=== PATIENT | female | born 1965 | race Caucasian/White ===

== ENCOUNTER 2018-01-28 13:05 | Emergency (ER) | payer OTHER ==
[~2018-01-28] VITALS: Ht 162.6 cm; Wt 62.6 kg
[2018-01-28] MEDS ORDERED: SINGULAIR5 MG PO (14:01)
[2018-01-28] MEDS ORDERED: PREDNISONE10 MG PO (14:01)
== END 2018-01-28 20:08 | disposition home or self-care (01) ==
LOC: ER 13:05
DX: J06.9 Acute upper respiratory infection, unspecified (principal)

== ENCOUNTER 2018-05-18 11:03 | Emergency (ER) | payer OTHER ==
[~2018-05-18] VITALS: Ht 162.6 cm; Wt 60.8 kg
[~2018-05-18 11:03] MED LIST: PREDNISONE10 MG PO; SINGULAIR5 MG PO
[2018-05-18] MEDS ORDERED: CYCLOBENZAPRINE10 MG PO (14:15)
[2018-05-18] MEDS ORDERED: DICLOFENAC SODI50 MG PO (14:15)
[2018-05-18] MEDS ORDERED: MEDROLPACK PO (14:15)
== END 2018-05-18 15:02 | disposition home or self-care (01) ==
LOC: ER 11:03
DX: M54.2 Cervicalgia (principal)

== ENCOUNTER 2019-04-17 10:22 | Outpatient (CLI) | payer OTHER ==
[~2019-04-17 10:22] MED LIST changes: +CYCLOBENZAPRINE10 MG PO; +DICLOFENAC SODI50 MG PO; +MEDROLPACK PO
== END 2019-04-17 11:55 | disposition home or self-care (01) ==
LOC: SONOGRAMA 10:22
DX: R59.1 Generalized enlarged lymph nodes (principal)

== ENCOUNTER 2021-03-18 08:47 | Day surgery (SDC) | payer OTHER ==
[~2021-03-18 08:47] MED LIST changes: +SYMBICORT 16010.2 GM IH
== END 2021-03-18 17:55 | disposition home or self-care (01) ==
LOC: CIR.AMB 08:47
PROVIDERS: ATTEND Colon & Rectal Surgery
DX: K80.10 Calculus of gallbladder with chronic cholecystitis without obstruction (principal); Z20.822 Contact with and (suspected) exposure to COVID-19

== ENCOUNTER 2022-05-30 18:13 | Emergency (ER) | payer OTHER ==
[~2022-05-30] VITALS: Ht 165.1 cm; Wt 66.2 kg
[2022-05-30] MEDS ORDERED: ATORVASTATIN CA10 MG PO (18:43)
== END 2022-05-30 22:11 | disposition home or self-care (01) ==
LOC: ER 18:13
DX: S90.121A Contusion of right lesser toe(s) without damage to nail, initial encounter (principal); W22.8XXA Striking against or struck by other objects, initial encounter; Y93.9 Activity, unspecified; Y92.012 Bathroom of single-family (private) house as the place of occurrence of the external cause; E78.00 Pure hypercholesterolemia, unspecified; J84.10 Pulmonary fibrosis, unspecified

== ENCOUNTER 2023-09-17 12:07 | Emergency (ER) | payer OTHER ==
[~2023-09-17] VITALS: Ht 165.1 cm; Wt 65.8 kg
[~2023-09-17 12:07] MED LIST changes: +ATORVASTATIN CA10 MG PO
[2023-09-17] MEDS ORDERED: PROAIR RESPICL90 MCG (12:42)
[2023-09-17] MEDS ORDERED: AZITHROMYCIN250 MG PO (12:42)
[2023-09-17 15:42] LABS: HEMATOCRIT 43.3 % (36.0-45.00); HEMOGLOBIN 14.7 g/dL (12.0-15.00); MEAN CORPUSCULAR HEMOGLOBIN 32.5 pg (27.00-32.0); MEAN CORPUSCULAR HGB CONC 33.9 g/dl (32.0-36.0); PLATELET COUNT 174 K/uL (150-450); RED BLOOD COUNT 4.51 M/uL (4.00-6.00); RED CELL DISTRIBUTION WIDTH 13.9 % (11.5-14.5)
[2023-09-17 16:09] LABS: ABG PH 7.554 (7.35-7.45); ABG PO2 126.5 mmHg (80-100); ABG pCO2 22.4 mmHg (35-45); SaO2 99.3 %
[2023-09-17 16:10] LABS: BASE EXCESS -0.7 mmol/l; BICARBONATE 19.4 mmol/l (23-25); Tco2 20.1 mmol/l; allen test SATISFACTORY; o2 21 %; puncture site RADIAL RIGHT
[2023-09-17 16:16] LABS: CALCIUM 9.6 mg/dL (8.5-10.1); CREATININE SERUM 0.82 mg/dL (0.55-1.02); GFR 71.11; POTASSIUM 4.23 mEq/L (3.5-5.1)
[2023-09-17 16:25] LABS: C-REACTIVE PROTEIN 0.72 MG/DL (0.00-0.29)
[2023-09-17] MEDS ORDERED: BUDESONIDE0.5 MG/2 M IH (17:05)
[2023-09-17] MEDS ORDERED: QC TUSSIN DM L118 ML PO (17:05)
[2023-09-17] MEDS ORDERED: IPRATROPIU0.2 MG/1 M IH (17:05)
[2023-09-17] MEDS ORDERED: ALBUTEROL0.63 MG/3 IH (17:05)
== END 2023-09-17 17:37 ==
LOC: ER 12:08
PROVIDERS: Nurse Practitioner Family
DX: J98.9 Respiratory disorder, unspecified (principal); J45.901 Unspecified asthma with (acute) exacerbation; Z20.822 Contact with and (suspected) exposure to COVID-19

== ENCOUNTER 2023-11-04 17:41 | Emergency (ER) | payer OTHER ==
[~2023-11-04] VITALS: Ht 165.1 cm; Wt 67.1 kg
[~2023-11-04 17:41] MED LIST changes: +ALBUTEROL0.63 MG/3 IH; +AZITHROMYCIN250 MG PO; +BUDESONIDE0.5 MG/2 M IH; +IPRATROPIU0.2 MG/1 M IH; +PROAIR RESPICL90 MCG; +QC TUSSIN DM L118 ML PO
[2023-11-04] MEDS ORDERED: MONTELUKAST SOD10 MG (17:54)
[2023-11-04] MEDS ORDERED: LIPITOR20 MG PO (17:55)
[2023-11-04] MEDS ORDERED: KETOROLAC TROMETHAMINE 30 MG VIAL IM STA (18:30)
[2023-11-04] MEDS ORDERED: CEFTRIAXONE SODIUM 1,000 MG VIAL IM STA (18:31)
[2023-11-04 18:57] LABS: HEMATOCRIT 41.5 % (36.0-45.00); HEMOGLOBIN 14.3 g/dL (12.0-15.00); MEAN CELL VOLUME 97.4 fL (80.00-100.00); MEAN CORPUSCULAR HEMOGLOBIN 33.5 pg (27.00-32.0); MEAN CORPUSCULAR HGB CONC 34.4 g/dl (32.0-36.0); PLATELET COUNT 151 K/uL (150-450); RED BLOOD COUNT 4.25 M/uL (4.00-6.00); RED CELL DISTRIBUTION WIDTH 13.6 % (11.5-14.5)
== END 2023-11-04 19:43 | disposition home or self-care (01) ==
LOC: ER 17:42
PROVIDERS: General Practice
DX: B02.9 Zoster without complications (principal); R21 Rash and other nonspecific skin eruption

== ENCOUNTER 2024-03-27 11:03 | Emergency (ER) | payer OTHER ==
[~2024-03-27] VITALS: Ht 165.1 cm; Wt 65.8 kg
[~2024-03-27 11:03] MED LIST changes: +LIPITOR20 MG PO; +MONTELUKAST SOD10 MG
[2024-03-27] MEDS ORDERED: DEXAMETHASONE SODIUM PHOSPHATE 4 MG/ML VIAL IM STA (13:01)
[2024-03-27] MEDS ORDERED: ZYRTEC10 MG PO (13:22)
== END 2024-03-27 14:51 | disposition home or self-care (01) ==
LOC: ER 11:04
DX: R05.8 Other specified cough (principal)